=== PATIENT | male | born 1945 | race Caucasian/White ===

== ENCOUNTER → 2017-11-18 | Outpatient (CLI) | payer MEDICARE ==
[2017-11-18 14:07] LABS: Basophils % (A) 1 %; Eosinophils # (A) 0.6 k/uL (0-0.7); Eosinophils % (A) 10 %; HCT 42.6 % (39.0-53.0); HGB 14.1 gm/dL (13.0-17.5); Lymphocytes # (A) 1.7 k/uL (1.0-4.8); Lymphocytes % (A) 27 %; MCHC 33.2 g/dL (31.0-37.0); MCV 93.5 fL (80.0-100.0); Mean Platelet Volume 7.7; Monocytes # (A) 0.4 k/uL (0-1.0); Monocytes % (A) 6 %; Neutrophils # (A) 3.4 k/uL (1.3-7.7); Neutrophils % (A) 54 %; Platelet Count 206 k/uL (150-450); RBC 4.56 m/uL (4.30-5.90); RDW 13.6 % (11.5-15.5); WBC 6.3 k/uL (3.8-10.6)
[2017-11-18 14:17] LABS: Calcium 9.6 mg/dL (8.4-10.2); Potassium 4.9 mmol/L (3.5-5.1); Total Bilirubin 0.6 mg/dL (0.2-1.3); Total Protein 6.7 g/dL (6.3-8.2)
[2017-11-18 14:33] LABS: T4, Free (Free Thyroxine) 0.89 ng/dL (0.78-2.19)
== END | disposition home or self-care (01) ==
LOC: LABWHC1 13:11
PROVIDERS: ATTEND Physician Assistant Medical
DX: L24.9 Irritant contact dermatitis, unspecified cause (principal)
CPT/HCPCS: 36415; 80053; 84439; 84443; 85025

== ENCOUNTER → 2020-09-04 | Outpatient (CLI) | payer MEDICARE ==
[2020-09-04 15:03] LABS: HCT 44.4 % (39.6-50.0); HGB 14.6 g/dL (13.0-17.0); MCH 32.2 pg (27.0-32.0); MCHC 32.9 g/dL (32.0-37.0); MCV 97.8 fL (80.0-97.0); Mean Platelet Volume 10.9 fL (9.5-12.2); Platelet Count 201 X 10*3/uL (140-440); RBC 4.54 X 10*6/uL (4.40-5.60); RDW 13.7 % (11.5-14.5); WBC 6.34 X 10*3/uL (4.50-10.00)
[2020-09-04 15:48] LABS: African American GFR (CKD) 67.7 (60.0-200.0); Anion Gap 4.6 mmol/L (4.00-12.00); Carbon Dioxide 29.4 mmol/L (21.6-31.8); Non-African American GFR(CKD) 58.4 (60.0-200.0); Potassium 4.8 mmol/L (3.5-5.5)
== END | disposition home or self-care (01) ==
LOC: LABWHC1 09:27
PROVIDERS: ATTEND Internal Medicine Interventional Cardiology
DX: Z01.818 Encounter for other preprocedural examination (principal); R94.39 Abnormal result of other cardiovascular function study
CPT/HCPCS: 36415; 80051; 82565; 84520; 85027

== ENCOUNTER 2020-09-06 07:49 | Day surgery (SDC) | payer MEDICARE ==
[2020-09-04 13:19] VITALS: BMI 20.9
[~2020-09-06 07:49] MED LIST: ALPRAZolam 0.25 MG TAB PO PRN; ALPRAZolam 0.5 MG TAB PO PRN; ASPIRIN 325 MG TAB PO STA; HEPARIN SODIUM,PORCINE 10,000 UNIT in SODIUM CHLORIDE 0.9% 1,000 ML IRRIGATION PRN; HEPARIN SODIUM,PORCINE 2,500 UNIT in SODIUM CHLORIDE 0.9% 250 ML IRRIGATION PRN; NITROGLYCERIN SL TABS 0.4 MG TAB SUBLINGUAL PRN; SODIUM CHLORIDE 0.9% 1,000 ML in EMPTY BAG 1 BAG IV ONE
[2020-09-06 08:23] VITALS: RESP 18; TEMP 96.8
[2020-09-06 08:29] LABS: Basophils # (A) 0.1 k/uL (0-0.2); Basophils % (A) 1 %; Eosinophils # (A) 0.2 k/uL (0-0.7); Eosinophils % (A) 3 %; HCT 48.5 % (39.0-53.0); HGB 15.9 gm/dL (13.0-17.5); Lymphocytes # (A) 1.3 k/uL (1.0-4.8); Lymphocytes % (A) 18 %; MCH 32.4 pg (25.0-35.0); MCHC 32.8 g/dL (31.0-37.0); MCV 98.8 fL (80.0-100.0); Mean Platelet Volume 7.7; Monocytes # (A) 0.5 k/uL (0-1.0); Monocytes % (A) 7 %; Neutrophils # (A) 5.1 k/uL (1.3-7.7); Neutrophils % (A) 69 %; Platelet Count 203 k/uL (150-450); RBC 4.91 m/uL (4.30-5.90); RDW 13.3 % (11.5-15.5); WBC 7.3 k/uL (3.8-10.6)
[2020-09-06 08:46] LABS: Calcium 9.5 mg/dL (8.4-10.2); Potassium 4.1 mmol/L (3.5-5.1)
[2020-09-06] MEDS ORDERED: LIDOCAINE 1% INJ 10MG/ML (20 ML MDV) ONE (08:49)
[2020-09-06] MEDS ORDERED: VERAPAMIL 2.5 MG/ML 2 ML AMP ONE (08:49)
[2020-09-06] MEDS ORDERED: HEPARIN SODIUM 1,000 UN/ML (10ML VL) ONE (08:50)
[2020-09-06] MEDS ORDERED: fentaNYL (PF) 50 MCG/ML 2 ML AMP ONE (08:50)
[2020-09-06] MEDS ORDERED: fentaNYL (PF) 50 MCG/ML 2 ML AMP IV ONE (09:30)
[2020-09-06] MEDS ORDERED: LIDOCAINE 1% INJ 10MG/ML (20 ML MDV) SQ ONE ×2 (09:34→09:35)
[2020-09-06] MEDS: VERAPAMIL SYRINGE (5 MG/10 ML) IV ONE ×3 (09:38→09:52)
[2020-09-06] MEDS ORDERED: HEPARIN SODIUM 1,000 UN/ML (10ML VL) IV ONE (09:44)
[2020-09-06] MEDS ORDERED: IOPAMIDOL-370 125ML BTL INJ ONE (09:54)
[2020-09-06] MEDS ORDERED: RX INFO: IV CONTRAST WAS GIVEN 1 EACH MISC MISCELLANE PRN (10:13)
[2020-09-06] MEDS ORDERED: SODIUM CHLORIDE 0.9% 1,000 ML IV SCH (10:15)
--- NOTE | 2020-09-06 13:27 | CC ---
CARDIAC CATHETERIZATION REPORT Mr. Cummings is a 75-year-old male who was recently diagnosed with atrial fibrillation, was found to have an abnormal myocardial perfusion imaging with evidence of cardiomyopathy on his nuclear scan. In view of that, recommendation was made regarding cardiac catheterization. The procedure as well as the risks and the complications were discussed with the patient who is in full understanding and agreement. PROCEDURE: Patient was brought to entry level lab technician in a fasting semi-sedated state after receiving fentanyl and Benadryl and achieving moderate conscious sedated state. Using Xylocaine anesthesia and Seldinger technique, a 6-Azerbaijani sheath was introduced in the right radial artery. Selective right and left coronary angiography performed using 5-Azerbaijani 3.5 bend right and left [place] catheter. Multiple views of the coronary artery including hemiaxial views were obtained. Following that, the 5-Azerbaijani tight pigtail catheter was introduced in the left ventricle and pressures were calculated. Following that, catheter and sheath were removed. Hemostasis was obtained with deployment of a TR band. There was no immediate complication. The patient was returned to his room in stable condition. Of note, the patient received 4000 units of intravenous heparin as well as intra-arterial verapamil. He had no complication. FINDINGS: LEFT MAIN: This is a short size vessel, bifurcating into left circumflex and left anterior descending artery. Left main coronary artery has no evidence of high-grade stenosis. LEFT ANTERIOR DESCENDING ARTERY: This is a large-sized vessel reaching to the apex with a wraparound apex segment giving rise to a moderately sized diagonal branch. The left anterior descending artery as well as branches have no evidence of obstructive coronary artery disease. LEFT CIRCUMFLEX: This is a nondominant vessel giving rise to 2 obtuse marginal branches. The first one is large in caliber. The left circumflex as well as branches have no evidence of obstructive coronary artery disease. RIGHT CORONARY ARTERY: This is a large dominant vessel bifurcating distally PDA and posterolateral segment and branches. The right coronary artery as well as branches have no evidence of obstructive coronary artery disease. LEFT VENTRICULOGRAM: Left ventriculogram was not performed. HEMODYNAMICS: There was no gradient across the aortic valve. The left ventricular end-diastolic pressure was 6 to 8 mmHg. CONCLUSION: 1. Normal coronary arteries. 2. Normal left ventricular end-diastolic pressure. RECOMMENDATION: In view of finding anatomy, recommend to continue medical therapy with aggressive coronary risk modifications that have been initiated. Those findings and recommendations were discussed with the patient and his family and they are in full understanding and agreement. Duration of sedation is 18 minutes. MMODL / IJN: [id number] /
[2020-09-06 13:36] VITALS: BP 106/72; PULSE 72
[2020-09-06] MEDS ORDERED: NON FORMULARY DRUG (Multivit-Min/Fa/Lycopen/Lutein [Centrum Silver Men Tablet] 1 EACH Tabl PO SCH (18:30)
[2020-09-06] MEDS ORDERED: NON FORMULARY DRUG (Simvastatin 20 MG Tab) PO SCH (21:00)
[2020-09-06] MEDS ORDERED: lisinopriL 5 MG TAB PO SCH (21:00)
== END 2020-09-06 13:56 | disposition home or self-care (01) ==
LOC: CATHCVL 07:49
PROVIDERS: ATTEND Internal Medicine Interventional Cardiology
DX: I42.9 Cardiomyopathy, unspecified (principal); R94.39 Abnormal result of other cardiovascular function study; I48.11 Longstanding persistent atrial fibrillation; E78.2 Mixed hyperlipidemia; Z79.01 Long term (current) use of anticoagulants; Z79.899 Other long term (current) drug therapy; Z98.890 Other specified postprocedural states
CPT/HCPCS: 93458; 80048; 85025; J2001; J3010; J1644; Q9967

== ENCOUNTER → 2020-10-02 | Outpatient (CLI) | payer MEDICARE ==
[2020-10-02 09:17] LABS: HCT 47.4 % (39.0-53.0); HGB 15.6 gm/dL (13.0-17.5); MCH 32.6 pg (25.0-35.0); MCHC 32.9 g/dL (31.0-37.0); Platelet Count 190 k/uL (150-450); RBC 4.79 m/uL (4.30-5.90); RDW 13.2 % (11.5-15.5); WBC 6.3 k/uL (3.8-10.6)
[2020-10-02 09:32] LABS: Potassium 4.4 mmol/L (3.5-5.1)
== END | disposition home or self-care (01) ==
LOC: LABPAT 08:38
PROVIDERS: ATTEND Internal Medicine Interventional Cardiology
DX: Z01.818 Encounter for other preprocedural examination (principal); I48.21 Permanent atrial fibrillation
CPT/HCPCS: 36415; 80051; 82565; 84520; 85027

== ENCOUNTER 2020-10-09 05:57 | Day surgery (SDC) | payer MEDICARE ==
[2020-10-04 13:30] VITALS: BMI 21.7
[2020-10-09] MEDS ORDERED: LACTATED RINGERS 1,000 ML IV SCH (06:15)
[2020-10-09] MEDS ORDERED: SODIUM CHLORIDE 0.9% 1,000 ML IV SCH ×2 (06:15→08:00)
[2020-10-09] MEDS ORDERED: PROPOFOL 10 MG/ML 20 ML VIAL IV ONE (07:12)
[2020-10-09 07:52] VITALS: TEMP 97.2
[2020-10-09 07:58] VITALS: RESP 16
--- NOTE | 2020-10-09 08:38 | CE ---
CARDIAC ELECTROPHYSIOLOGY REPORT CARDIOVERSION PROCEDURE NOTE: INDICATION: Atrial fibrillation. PROCEDURE: After explaining the procedure to the patient, its risks and the complications, his blood pressure, heart rate, O2 saturation were monitored. After obtaining sedated state per anesthesia department and performing transesophageal echocardiogram, a synchronized biphasic cardioversion using 200 joules was performed with baptism of normal sinus rhythm. There was no immediate complication. NICOLLE / ALTHEAN: [id number] /
[2020-10-09] MEDS ORDERED: AMIODARONE 200 MG TAB PO SCH (09:00)
--- NOTE | 2020-10-09 10:01 | ECHOT ---
TRANSESOPHAGEAL ECHOCARDIOGRAM INDICATION: Atrial fibrillation. PROCEDURE: After explaining the procedure to the patient, its risks and the complication, his blood pressure, heart rate, O2 saturation were monitored. The throat was sprayed with Cetacaine. He received sedation per anesthesia department. The probe was introduced in the esophagus without difficulty. Images were obtained. The probe was removed. There was no immediate complication. FINDINGS: Left atrial size is dilated. Left atrial appendage is normal. Left ventricular size is normal. The overall left ventricular systolic function is mildly impaired. Estimated ejection fraction 45% to 50%. The aortic valve revealed mild fibrocalcific change with aortic cusp with preserved opening. Mitral valve appears to be normal. No pericardial effusion was noted. Descending thoracic aorta appears to be normal. Contrast bubble study revealed no evidence of shunting across the interatrial septum. Doppler pulse wave and color Doppler obtained and revealed moderate to severe eccentric mitral regurgitation with mild tricuspid regurgitation and trace pulmonic regurgitation. There was no shunting by color Doppler study. CONCLUSION: 1. Dilated left atrium with normal appearance of the left atrial appendage. 2. Normal left ventricular size with mild global hypokinesis. 3. Moderate to severe eccentric mitral regurgitation. 4. Mild tricuspid regurgitation with trace pulmonic regurgitation. 5. No shunting across the interatrial septum. MMODL / IJN: [id number] /
[2020-10-09 10:31] VITALS: PULSE 76
[2020-10-09 10:34] VITALS: BP 137/80
[2020-10-09] MEDS ORDERED: RIVAROXABAN 20 MG TAB PO SCH (21:00)
[2020-10-09] MEDS ORDERED: ATORVASTATIN 10 MG TAB PO SCH (21:00)
[2020-10-09] MEDS ORDERED: lisinopriL 5 MG TAB PO SCH (21:00)
== END 2020-10-09 10:10 | disposition home or self-care (01) ==
LOC: CATHCVL 05:57
PROVIDERS: ATTEND Internal Medicine Interventional Cardiology
DX: I48.11 Longstanding persistent atrial fibrillation (principal); I42.8 Other cardiomyopathies; I08.1 Rheumatic disorders of both mitral and tricuspid valves; E78.2 Mixed hyperlipidemia; Z79.01 Long term (current) use of anticoagulants; Z79.899 Other long term (current) drug therapy
CPT/HCPCS: 93312; 93320; 93325; 92960; J2704; 93005

== ENCOUNTER → 2020-11-27 | Outpatient (CLI) | payer MEDICARE ==
[2020-11-27 21:15] LABS: African American GFR (CKD) 56.2 (60.0-200.0); Albumin 4.3 g/dL (3.80-4.90); Albumin/Globulin Ratio 1.48 (1.60-3.17); Anion Gap 8.6 mmol/L (4.00-12.00); BUN/Creat Ratio 16.43 Ratio (12.00-20.00); Calcium 9.2 mg/dL (8.7-10.3); Carbon Dioxide 25.4 mmol/L (21.6-31.8); Globulin 2.9 g/dL (1.6-3.3); Non-African American GFR(CKD) 48.5 (60.0-200.0); Potassium 4.8 mmol/L (3.5-5.5); Total Bilirubin 0.5 mg/dL (0.3-1.2); Total Protein 7.2 g/dL (6.2-8.2)
== END | disposition home or self-care (01) ==
LOC: LABWHC1 09:10
PROVIDERS: ATTEND Nurse Practitioner Adult Health
DX: I48.11 Longstanding persistent atrial fibrillation (principal); I42.8 Other cardiomyopathies
CPT/HCPCS: 36415; 80053; 84443

== ENCOUNTER → 2021-06-05 | Outpatient (CLI) | payer MEDICARE ==
[2021-06-05 11:17] LABS: Basophils # (A) 0.06 X 10*3/uL (0.00-0.10); Basophils % (A) 0.9 %; Eosinophils # (A) 0.12 X 10*3/uL (0.04-0.35); Eosinophils % (A) 1.8 %; HCT 42.1 % (39.6-50.0); HGB 13.3 g/dL (13.0-17.0); Lymphocytes # (A) 1.03 X 10*3/uL (0.90-5.00); Lymphocytes % (A) 15.4 %; MCH 31.5 pg (27.0-32.0); MCHC 31.6 g/dL (32.0-37.0); MCV 99.8 fL (80.0-97.0); Mean Platelet Volume 10.5 fL (9.5-12.2); Monocytes # (A) 0.64 X 10*3/uL (0.20-1.00); Monocytes % (A) 9.6 %; Neutrophils # (A) 4.82 X 10*3/uL (1.80-7.70); Platelet Count 208 X 10*3/uL (140-440); RBC 4.22 X 10*6/uL (4.40-5.60); RDW 13.8 % (11.5-14.5); WBC 6.69 X 10*3/uL (4.50-10.00)
[2021-06-06 01:49] LABS: African American GFR (CKD) 56.7 (60.0-200.0); Albumin 4.3 g/dL (3.8-4.9); Albumin/Globulin Ratio 1.61 (1.60-3.17); Anion Gap 15.6 mmol/L (4.00-12.00); BUN/Creat Ratio 11.58 Ratio (12.00-20.00); Blood Urea Nitrogen 16.1 mg/dL (9.0-27.0); Calcium 9.6 mg/dL (8.7-10.3); Globulin 2.7 g/dL (1.6-3.3); Non-African American GFR(CKD) 48.9 (60.0-200.0); Potassium 4.5 mmol/L (3.5-5.5); Total Bilirubin 0.4 mg/dL (0.30-1.20); Total Protein 6.9 g/dL (6.2-8.2)
== END | disposition home or self-care (01) ==
LOC: LABWHC1 08:38
PROVIDERS: ATTEND Nurse Practitioner Adult Health
DX: I42.8 Other cardiomyopathies (principal); I48.11 Longstanding persistent atrial fibrillation; G31.84 Mild cognitive impairment of uncertain or unknown etiology
CPT/HCPCS: 36415; 80053; 84443; 85025

== ENCOUNTER 2021-07-22 13:20 | Emergency (ER) | payer MEDICARE ==
[2021-07-22 14:20] VITALS: TEMP 98.8
[2021-07-22 15:20] LABS: Basophils % (A) 0 %; Eosinophils # (A) 0.1 k/uL (0-0.7); Eosinophils % (A) 0 %; HCT 48.4 % (39.0-53.0); HGB 15.3 gm/dL (13.0-17.5); Lymphocytes # (A) 0.1 k/uL (1.0-4.8); Lymphocytes % (A) 1 %; MCH 32.2 pg (25.0-35.0); MCHC 31.6 g/dL (31.0-37.0); MCV 101.9 fL (80.0-100.0); Macrocytosis Slight; Mean Platelet Volume 8.3; Monocytes # (A) 0.4 k/uL (0-1.0); Monocytes % (A) 2 %; Neutrophils # (A) 14.1 k/uL (1.3-7.7); Neutrophils % (A) 96 %; Platelet Count 207 k/uL (150-450); RBC 4.75 m/uL (4.30-5.90); RDW 13.4 % (11.5-15.5); WBC 14.7 k/uL (3.8-10.6)
[2021-07-22 15:31] LABS: Partial Thromboplastin Time 29.6 sec (22.0-30.0); Prothrombin Time 10.7 sec (9.0-12.0)
[2021-07-22 15:37] LABS: Calcium 9.2 mg/dL (8.4-10.2); Potassium 5.1 mmol/L (3.5-5.1); Total Bilirubin 0.4 mg/dL (0.2-1.3)
--- NOTE | 2021-07-22 15:43 | XR ---
EXAMINATION TYPE: XR chest 2V DATE OF EXAM: 07/22/2021 COMPARISON: NONE HISTORY: Blurry vision, weakness TECHNIQUE: Frontal and lateral views of the chest are obtained. FINDINGS: Cardiomediastinal silhouette appears within normal limits. Lungs appear hyperinflated. Coarse interst itial lung markings which likely relate to chronic fibrotic changes. No focal air space opacity, pleu ral effusion, or pneumothorax. Visualized osseous structures appear intact. Moderate degenerative changes of the thoracic spine. IMPRESSION: 1. No dense focal consolidation, pleural effusion, or pneumothorax. 2. Hyperinflated lungs with coarse interstitial lung markings likely due to chronic fibrosis.
--- NOTE | 2021-07-22 16:07 | ED ---
General Adult HPI - General Chief complaint: Weakness Stated complaint: blurred vision Time Seen by Provider: 07/22/21 14:20 Source: patient, RN notes reviewed, old records reviewed Mode of arrival: wheelchair Limitations: no limitations - History of Present Illness Initial comments: This is a 75-year-old male who presents emergency department stating that last night before he went to bed he wasn't feeling well and he thought he might pass out so he laid on the bed and noted that he was short of breath. Patient states events he fell asleep and when he woke up this morning continued to be short of breath and be a little lightheaded. Patient states she did get the COVID vaccine the [employer] but has not got the booster. Patient denies any fever chills or cough. Patient denies any chest pain or palpitations. Patient denies any abdominal pain patient denies nausea vomiting diarrhea. Patient states since she's been sitting in the waiting was feeling better he doesn't feel lightheaded and he doesn't feel short of breath as he did. Patient states only complaint currently is generalized weakness. - Related Data Home Medications Medication Instructions Recorded Confirmed Multivit-Min/FA/Lycopen/Lutein 1 each PO PC-SUPPER 09/04/20 10/09/20 [Centrum Silver Men Tablet] Simvastatin [Zocor] 20 mg PO HS 09/04/20 10/09/20 lisinopriL [Zestril] 5 mg PO HS 09/04/20 10/09/20 Amiodarone [Cordarone] 200 mg PO DAILY 10/04/20 10/09/20 Rivaroxaban [Xarelto] 20 mg PO HS 10/04/20 10/09/20 Previous Rx's Medication Instructions Recorded Azithromycin [Zithromax Tri-Catrachito] 500 mg PO DAILY #3 tab 07/22/21 Allergies Allergy/AdvReac Type Severity Reaction Status Date / Time No Known Allergies Allergy Verified 07/22/21 14:21 Review of Systems ROS Statement: Those systems with pertinent positive or pertinent negative responses have been documented in the HPI. ROS Other: All systems not noted in ROS Statement are negative. Past Medical History Past Medical History: Atrial Fibrillation, Hyperlipidemia, Hypertension History of Any Multi-Drug Resistant Organisms: None Reported Past Surgical History: Orthopedic Surgery Additional Past Surgical History / Comment(s): colonoscopy, sx for fx pelvis as child Past Anesthesia/Blood Transfusion Reactions: No Reported Reaction Past Psychological History: No Psychological Hx Reported Smoking Status: Never smoker Past Alcohol Use History: None Reported Past Drug Use History: None Reported General Exam - General Exam Comments Initial Comments: GENERAL: Patient is well-developed and well-nourished. Patient is nontoxic and well- hydrated and is in mild distress. ENT: Neck is soft and supple. No significant lymphadenopathy is noted. Oropharynx is clear. Moist mucous membranes. Neck has full range of motion without eliciting any pain. EYES: The sclera were anicteric and conjunctiva were pink and moist. Extraocular movements were intact and pupils were equal round and reactive to light. Ey elids were unremarkable. PULMONARY: Unlabored respirations. Good breath sounds bilaterally. No audible rales rhonchi or wheezing was noted. CARDIOVASCULAR: There is a regular rate and rhythm without any murmurs gallops or rubs. ABDOMEN: Soft and nontender with normal bowel sounds. SKIN: Skin is clear with no lesions or rashes and otherwise unremarkable. NEUROLOGIC: Patient is alert and oriented x3. Cranial nerves II through XII are grossly intact. Motor and sensory are also intact. Normal speech, volume and content. Symmetrical smile. MUSCULOSKELETAL: Normal extremities with adequate strength and full range of motion. No lower extremity swelling or edema. No calf tenderness. LYMPHATICS: No significant lymphadenopathy is noted PSYCHIATRIC: Normal psychiatric evaluation. Limitations: no limitations Course Vital Signs 07/22/21 07/22/21 14:18 16:18 Temperature 98.8 F Pulse Rate 95 89 Respiratory 16 18 Rate Blood Pressure 96/62 125/64 O2 Sat by Pulse 98 99 Oximetry Medical Decision Making - Medical Decision Making EKG shows sinus rhythm at 80 bpm FL interval is 212 QRS is 132 QT interval 386 QTC is 467. Patient's EKG shows a right bundle branch block. Chest x-ray shows possible atypical pneumonia I went back in and suggested the patient stay because of his near syncopal episode he and his did not want to stay and he wanted to be discharged home. Patient did receive a gram of Rocephin emergency department. - Lab Data Result diagrams: 07/22/21 14:40 07/22/21 14:40 Lab Results 07/22/21 07/22/21 07/22/21 Range/Units 14:40 14:40 14:40 WBC 14.7 H (3.8-10.6) k/uL RBC 4.75 (4.30-5.90) m/uL Hgb 15.3 (13.0-17.5) gm/dL Hct 48.4 (39.0-53.0) % MCV 101.9 H (80.0-100.0) fL MCH 32.2 (25.0-35.0) pg MCHC 31.6 (31.0-37.0) g/dL RDW 13.4 (11.5-15.5) % Plt Count 207 (150-450) k/uL MPV 8.3 Neutrophils % 96 % Lymphocytes % 1 % Monocytes % 2 % Eosinophils % 0 % Basophils % 0 % Neutrophils # 14.1 H (1.3-7.7) k/uL Lymphocytes # 0.1 L (1.0-4.8) k/uL Monocytes # 0.4 (0-1.0) k/uL Eosinophils # 0.1 (0-0.7) k/uL Basophils # 0.0 (0-0.2) k/uL Macrocytosis Slight PT 10.7 (9.0-12.0) sec INR 1.0 (<1.2) APTT 29.6 (22.0-30.0) sec Sodium (137-145) mmol/L Potassium (3.5-5.1) mmol/L Chloride (98-107) mmol/L Carbon Dioxide (22-30) mmol/L Anion Gap mmol/L BUN (9-20) mg/dL Creatinine (0.66-1.25) mg/dL Est GFR (CKD-EPI)AfAm (>60 ml/min/1.73 sqM) Est GFR (CKD-EPI)NonAf (>60 ml/min/1.73 sqM) Glucose (74-99) mg/dL Calcium (8.4-10.2) mg/dL Total Bilirubin (0.2-1.3) mg/dL AST (17-59) U/L ALT (4-49) U/L Alkaline Phosphatase (38-126) U/L Troponin I (0.000-0.034) ng/mL Total Protein (6.3-8.2) g/dL Albumin (3.5-5.0) g/dL Urine Color Yellow Urine Appearance Cloudy (Clear) Urine pH 5.0 (5.0-8.0) Ur Specific Cook Sta 1.023 (1.001-1.035) Urine Protein 1+ H (Negative) Urine Glucose (UA) Negative (Negative) Urine Ketones Negative (Negative) Urine Blood Negative (Negative) Urine Nitrite Negative (Negative) Urine Bilirubin Negative (Negative) Urine Urobilinogen <2.0 (<2.0) mg/dL Ur Leukocyte Esterase Negative (Negative) Urine RBC 8 H (0-5) /hpf Urine WBC 9 H (0-5) /hpf Ur Squamous Epith Cells 2 (0-4) /hpf Urine Bacteria Many H (None) /hpf Hyaline Casts 150 H (0-2) /lpf Urine Mucus Many H (None) /hpf Coronavirus (PCR) (Not Detectd) 07/22/21 07/22/21 07/22/21 Range/Units 14:40 14:40 16:13 WBC (3.8-10.6) k/uL RBC (4.30-5.90) m/uL Hgb (13.0-17.5) gm/dL Hct (39.0-53.0) % MCV (80.0-100.0) fL MCH (25.0-35.0) pg MCHC (31.0-37.0) g/dL RDW (11.5-15.5) % Plt Count (150-450) k/uL MPV Neutrophils % % Lymphocytes % % Monocytes % % Eosinophils % % Basophils % % Neutrophils # (1.3-7.7) k/uL Lymphocytes # (1.0-4.8) k/uL Monocytes # (0-1.0) k/uL Eosinophils # (0-0.7) k/uL Basophils # (0-0.2) k/uL Macrocytosis PT (9.0-12.0) sec INR (<1.2) APTT (22.0-30.0) sec Sodium 139 (137-145) mmol/L Potassium 5.1 (3.5-5.1) mmol/L Chloride 106 (98-107) mmol/L Carbon Dioxide 21 L (22-30) mmol/L Anion Gap 12 mmol/L BUN 33 H (9-20) mg/dL Creatinine 1.98 H (0.66-1.25) mg/dL Est GFR (CKD-EPI)AfAm 37 (>60 ml/min/1.73 sqM) Est GFR (CKD-EPI)NonAf 32 (>60 ml/min/1.73 sqM) Glucose 144 H (74-99) mg/dL Calcium 9.2 (8.4-10.2) mg/dL Total Bilirubin 0.4 (0.2-1.3) mg/dL AST 34 (17-59) U/L ALT 24 (4-49) U/L Alkaline Phosphatase 50 (38-126) U/L Troponin I <0.012 (0.000-0.034) ng/mL Total Protein 7.0 (6.3-8.2) g/dL Albumin 4.0 (3.5-5.0) g/dL Urine Color Urine Appearance (Clear) Urine pH (5.0-8.0) Ur Specific Cook Sta (1.001-1.035) Urine Protein (Negative) Urine Glucose (UA) (Negative) Urine Ketones (Negative) Urine Blood (Negative) Urine Nitrite (Negative) Urine Bilirubin (Negative) Urine Urobilinogen (<2.0) mg/dL Ur Leukocyte Esterase (Negative) Urine RBC (0-5) /hpf Urine WBC (0-5) /hpf Ur Squamous Epith Cells (0-4) /hpf Urine Bacteria (None) /hpf Hyaline Casts (0-2) /lpf Urine Mucus (None) /hpf Coronavirus (PCR) Not Detected (Not Detectd) Disposition Clinical Impression: Atypical pneumonia, Near syncope Disposition: HOME SELF-CARE Condition: Good Instructions (If sedation given, give patient instructions): Pneumonia (ED) Prescriptions: Azithromycin [Zithromax Tri-Catrachito] 500 mg PO DAILY #3 tab Is patient prescribed a controlled substance at d/c from ED?: No Referrals: None,Stated [REFERRING] - 1-2 days Time of Disposition: 18:18
[2021-07-22 16:18] VITALS: BP 125/64; PULSE 89; RESP 18
[2021-07-22 18:10] LABS: Appearance,Urine Cloudy (Clear); Bacteria,Urine Many /hpf; Bilirubin,Urine Negative (Negative); Blood,Urine Negative (Negative); Color,Urine Yellow; Glucose,Urine (UA) Negative (Negative); Hyaline Casts,Urine 150 /lpf (0-2); Ketones,Urine Negative (Negative); Leukocyte Esterase,Urine Negative (Negative); Mucus,Urine Many /hpf; Nitrite,Urine Negative (Negative); Protein,Urine 1+ (Negative); RBC,Urine 8 /hpf (0-5); Specific Gravity,Urine 1.023 (1.001-1.035); Squamous Epithelial Cell,Urine 2 /hpf (0-4); Urobilinogen,Urine <2.0 mg/dL (<2.0); WBC,Urine 9 /hpf (0-5)
[2021-07-22] MEDS ORDERED: cefTRIAXone 1,000 MG VIAL (IM USE) IM STA (18:19)
== END 2021-07-22 18:48 | disposition home or self-care (01) ==
LOC: EC 13:20
DX: R55 Syncope and collapse (principal); J18.8 Other pneumonia, unspecified organism; I48.91 Unspecified atrial fibrillation; E78.5 Hyperlipidemia, unspecified; I10 Essential (primary) hypertension; Z20.822 Contact with and (suspected) exposure to COVID-19
CPT/HCPCS: 99285; 96372; 36415; 93005; 80053; 84484; 85025; 85610; 85730; 81001; 87635; 71046; J0696

== ENCOUNTER → 2021-08-10 | Outpatient (CLI) | payer MEDICARE ==
--- NOTE | 2021-08-11 07:42 | US ---
EXAMINATION TYPE: US kidneys/renal and bladder DATE OF EXAM: 08/10/2021 COMPARISON: NONE CLINICAL HISTORY: N28.9 impaired renal function. EXAM MEASUREMENTS: Right Kidney: 10.1 x 6.1 x 4.0 cm Left Kidney: 9.6 x 3.9 x 5.0 cm Post Void Residual Volume: 13.5 mL Right Kidney: upper to mid cortical cyst is seen = 1.0 x 0.6 x 0.8cm Left Kidney: limitedly seen due to overlying bowel gas anteriorly and rib interference in coronal and prone views Bladder: moderately distended; prostate is noted inferior and posterior to bladder with volume measur e approximately = 29.7ml (wnl as is less than 30.0 ml). Bilateral Jets seen: no, only right ureteral jet was seen within 3 minute observation Normal Post Void Residual: yes IMPRESSION: 1. No hydronephrosis or nephrolithiasis. 2. Bladder limited by incomplete distention 3. Correlate for prostate hypertrophy.
== END | disposition home or self-care (01) ==
LOC: RADUSWWP 15:51
PROVIDERS: ATTEND Family Medicine
DX: N32.89 Other specified disorders of bladder (principal)
CPT/HCPCS: 76770

== ENCOUNTER 2024-05-16 16:13 | Inpatient (IN) | payer MEDICARE ==
--- NOTE | 2024-05-16 16:28 | ED ---
General Adult HPI - General Chief complaint: Altered Mental Status Stated complaint: Fall, Failure to Thrive Time Seen by Provider: 05/16/24 16:25 Source: patient, family, EMS Mode of arrival: EMS Limitations: altered mental status - History of Present Illness Initial comments: Patient presents to the ED by ambulance for evaluation with son at bedside. Per son, the patient's neighbor came to bring him dinner a short while ago and found him "half on and half off his bed". He states that the patient was minimally responsive, so an ambulance was called. He states that the patient has baseline dementia, and he is normally A&O x 1. He states that the patient was last seen by his neighbor yesterday at approximately the same time. He states that he is unsure how long the patient was down for today. Patient was placed in a c- collar by EMS. Patient denies having any pain or symptoms/complaints at this time, but history from the patient is very limited due to dementia. - Related Data Home Medications Medication Instructions Recorded Confirmed No Known Home Medications 05/16/24 05/16/24 Allergies Allergy/AdvReac Type Severity Reaction Status Date / Time No Known Allergies Allergy Verified 05/16/24 16:49 Review of Systems ROS Statement: Those systems with pertinent positive or pertinent negative responses have been documented in the HPI. ROS Other: All systems not noted in ROS Statement are negative. Limitations: ROS unobtainable due to patients medical condition Past Medical History Past Medical History: Atrial Fibrillation, Dementia, Hyperlipidemia, Hypertension History of Any Multi-Drug Resistant Organisms: None Reported Past Surgical History: Orthopedic Surgery Additional Past Surgical History / Comment(s): colonoscopy, sx for fx pelvis as child Past Anesthesia/Blood Transfusion Reactions: No Reported Reaction Past Psychological History: No Psychological Hx Reported Smoking Status: Never smoker Past Alcohol Use History: None Reported Past Drug Use History: None Reported General Exam Limitations: altered mental status General appearance: alert, in no apparent distress Head exam: Present: atraumatic, normocephalic Eye exam: Present: normal appearance, PERRL, EOMI ENT exam: Present: mucous membranes dry, TM's normal bilaterally Neck exam: Present: other (C-collar is in place; no posterior cervical step-off deformity is noted on exam; trachea is in midline). Absent: tenderness Respiratory exam: Present: normal lung sounds bilaterally. Absent: respiratory distress, wheezes, rales, rhonchi, stridor, chest wall tenderness Cardiovascular Exam: Present: regular rate, irregular rhythm, normal heart sounds, other (Normal radial pulses bilaterally) GI/Abdominal exam: Present: soft. Absent: distended, tenderness, guarding Extremities exam: Present: full ROM, other (Pelvis is stable and nontender; patient has full range of motion at bilateral hips without any difficulty). Absent: tenderness, pedal edema, calf tenderness Back exam: Present: normal inspection. Absent: tenderness Neurological exam: Present: alert, CN II-XII intact, other (Patient is oriented to person, but not to place or time). Absent: motor sensory deficit Skin exam: Present: warm, dry, intact, normal color Course Vital Signs 05/16/24 05/16/24 16:16 19:08 Temperature 98.8 F Pulse Rate 108 H 98 Respiratory 20 18 Rate Blood Pressure 152/101 140/100 O2 Sat by Pulse 97 98 Oximetry - Reevaluation(s) Reevaluation #1: 05/16/24 19:12 Case, H&P, test results and ED management thus far were discussed with [facility] Mouna Saeed. She accepts hospital admission. She has no further recommendations at this time. 05/16/24 19:16 Patient remains alert and breathing comfortably. Patient remains in rate controlled atrial fibrillation on the cardiac monitor technician. Family is aware of the patient's test results, and they all agree with hospital admission at this time. EKG Findings - EKG Comments: EKG Findings:: ED physician interpretation (interpreted by me): Atrial fibrillation, ventricular rate of 100 bpm, right bundle branch block (no change from 07/22/2021 EKG), QRS duration of 128 ms, normal QT interval, rightward axis, no definite ST or T wave abnormality Medical Decision Making - Medical Decision Making Was pt. sent in by a medical professional or institution (, PA, [facility], urgent care, hospital, or long-term...) When possible be specific @ -No Did you speak to anyone other than the patient for history (EMS, parent, family, police, friend...)? What history was obtained from this source @ -History was also obtained from the patient's son. Did you review nursing and triage notes (agree or disagree)? Why? @ -I reviewed and agree with nursing and triage notes Were old charts reviewed (outside hosp., previous admission, EMS record, old EKG, old radiological studies, urgent care reports/EKG's, long-term records)? Report findings @ -No old charts were reviewed Differential Diagnosis (chest pain, altered mental status, abdominal pain women, abdominal pain men, vaginal bleeding, weakness, fever, dyspnea, syncope, headache, dizziness, GI bleed, back pain, seizure, CVA, palpatations, mental health, musculoskeletal)? @ -Differential Altered Mental Status: Hypoglycemia, DKA, hypercapnia, ETOH, overdose, trauma, fall, ICH, rhabdomyolysis, myxedema coma, encephalopathy, infection, psychosis, hepatic encephalopathy, CVA, contusion, this is not meant to be an all-inclusive list EKG interpreted by me (3pts min.). @ -As above X-rays interpreted by me (1pt min.). @ -Chest x-ray was reviewed myself and shows findings consistent with pulmonary vascular congestion/CHF. I agree with the radiologist's interpretation as above. CT interpreted by me (1pt min.). @ -Noncontrast CT head/cervical spine was reviewed myself and shows no acute abnormality. I agree with the radiologist's interpretation as above. U/S interpreted by me (1pt. min.). @ -None done What testing was considered but not performed or refused? (CT, X-rays, U/S, labs)? Why? @ -None What meds were considered but not given or refused? Why? @ -None Did you discuss the management of the patient with other professionals (professionals i.e. , PA, [facility], lab, RT, psych nurse, drug abuse social worker, shake packer, teacher, bsa/aml compliance officer, case filler)? Give summary @ -As above. Was smoking cessation discussed for >3mins.? @ -No Was critical care preformed (if so, how long)? @ -No Were there social determinants of health that impacted care today? How? (Homelessness, low income, unemployed, alcoholism, drug addiction, transportation, low edu. Level, literacy, decrease access to med. care, shelter, rehab)? @ -No Was there de-escalation of care discussed even if they declined (Discuss DNR or withdrawal of care, Hospice)? DNR status @ -No What co-morbidities impacted this encounter? (DM, HTN, Smoking, COPD, CAD, Cancer, CVA, ARF, Chemo, Hep., AIDS, mental health diagnosis, sleep apnea, morbid obesity)? @ -None Was patient admitted / discharged? Hospital course, mention meds given and route, prescriptions, significant lab abnormalities, going to OR and other pertinent info. @ -History from the patient is very limited due to dementia. Son reports that the patient potentially fell today and lives by himself. ED evaluation demonstrates findings consistent with CHF. Patient has been treated with IV Lasix in the ED. Will admit the patient to the hospital for further e valuation/management, as well as placement evaluation. [facility] [place] Saeed has accepted hospital admission. Family agrees with this plan. Undiagnosed new problem with uncertain prognosis? @ -No Drug Therapy requiring intensive monitoring for toxicity (Heparin, Nitro, Insulin, Cardizem)? @ -No Were any procedures done? @ -No Diagnosis/symptom? @ -Altered mental status Acute, or Chronic, or Acute on Chronic? @ -Default Uncomplicated (without systemic symptoms) or Complicated (systemic symptoms)? @ -Default Side effects of treatment? @ -No Exacerbation, Progression, or Severe Exacerbation? @ -No Poses a threat to life or bodily function? How? (Chest pain, USA, MA, pneumonia, PE, COPD, DKA, ARF, appy, cholecystitis, CVA, Diverticulitis, Homicidal, Suicidal, threat to staff... and all critical care pts) @ -No Diagnosis/symptom? @ -Suspected fall Acute, or Chronic, or Acute on Chronic? @ -Acute Uncomplicated (without systemic symptoms) or Complicated (systemic symptoms)? @ -Default Side effects of treatment? @ -None Exacerbation, Progression, or Severe Exacerbation] @ -No Poses a threat to life or bodily function? @ -No Diagnosis/symptom? @ -CHF Acute, or Chronic, or Acute on Chronic? @ -Default Uncomplicated (without systemic symptoms) or Complicated (systemic symptoms)? @ -Default Side effects of treatment? @ -None Exacerbation, Progression, or Severe Exacerbation] @ -No Poses a threat to life or bodily function? @ -No Diagnosis/symptom? @ -Atrial fibrillation Acute, or Chronic, or Acute on Chronic? @ -Chronic Uncomplicated (without systemic symptoms) or Complicated (systemic symptoms)? @ -Default Side effects of treatment? @ -None Exacerbation, Progression, or Severe Exacerbation] @ -No Poses a threat to life or bodily function? @ -No - Lab Data Result diagrams: 05/16/24 17:05 05/16/24 17:05 Lab Results 05/16/24 05/16/24 05/16/24 Range/Units 17:05 17:05 17:05 WBC 9.2 (3.8-10.6) k/uL RBC 4.05 L (4.30-5.90) m/uL Hgb 13.4 (13.0-17.5) gm/dL Hct 42.3 (39.0-53.0) % MCV 104.4 H (80.0-100.0) fL MCH 33.0 (25.0-35.0) pg MCHC 31.6 (31.0-37.0) g/dL RDW 13.2 (11.5-15.5) % Plt Count 244 (150-450) k/uL MPV 7.9 Neutrophils % 85 % Lymphocytes % 7 % Monocytes % 6 % Eosinophils % 0 % Basophils % 1 % Neutrophils # 7.8 H (1.3-7.7) k/uL Lymphocytes # 0.6 L (1.0-4.8) k/uL Monocytes # 0.6 (0-1.0) k/uL Eosinophils # 0.0 (0-0.7) k/uL Basophils # 0.0 (0-0.2) k/uL Hypochromasia Slight Macrocytosis Slight PT 10.5 (10.0-12.5) sec INR 1.0 (<1.2) APTT 23.5 (22.0-30.0) sec Sodium 140 (137-145) mmol/L Potassium 3.9 (3.5-5.1) mmol/L Chloride 109 H (98-107) mmol/L Carbon Dioxide 24 (22-30) mmol/L Anion Gap 7 mmol/L BUN 22 H (9-20) mg/dL Creatinine 0.81 (0.66-1.25) mg/dL Est GFR (CKD-EPI)AfAm >90 (>60 ml/min/1.73 sqM) Est GFR (CKD-EPI)NonAf 85 (>60 ml/min/1.73 sqM) Glucose 106 H (74-99) mg/dL Calcium 9.0 (8.4-10.2) mg/dL Magnesium 1.9 (1.6-2.3) mg/dL Total Bilirubin 1.0 (0.2-1.3) mg/dL AST 23 (17-59) U/L ALT 15 (4-49) U/L Alkaline Phosphatase 55 (38-126) U/L Ammonia (<30) umol/L Creatine Kinase 71 (55-170) U/L Troponin I (0.000-0.034) ng/mL NT-Pro-B Natriuret Pep 5190 pg/mL Total Protein 7.1 (6.3-8.2) g/dL Albumin 3.9 (3.5-5.0) g/dL TSH 2.960 (0.465-4.680) mIU/L Serum Alcohol <10 mg/dL 05/16/24 05/16/24 Range/Units 17:05 17:05 WBC (3.8-10.6) k/uL RBC (4.30-5.90) m/uL Hgb (13.0-17.5) gm/dL Hct (39.0-53.0) % MCV (80.0-100.0) fL MCH (25.0-35.0) pg MCHC (31.0-37.0) g/dL RDW (11.5-15.5) % Plt Count (150-450) k/uL MPV Neutrophils % % Lymphocytes % % Monocytes % % Eosinophils % % Basophils % % Neutrophils # (1.3-7.7) k/uL Lymphocytes # (1.0-4.8) k/uL Monocytes # (0-1.0) k/uL Eosinophils # (0-0.7) k/uL Basophils # (0-0.2) k/uL Hypochromasia Macrocytosis PT (10.0-12.5) sec INR (<1.2) APTT (22.0-30.0) sec Sodium (137-145) mmol/L Potassium (3.5-5.1) mmol/L Chloride (98-107) mmol/L Carbon Dioxide (22-30) mmol/L Anion Gap mmol/L BUN (9-20) mg/dL Creatinine (0.66-1.25) mg/dL Est GFR (CKD-EPI)AfAm (>60 ml/min/1.73 sqM) Est GFR (CKD-EPI)NonAf (>60 ml/min/1.73 sqM) Glucose (74-99) mg/dL Calcium (8.4-10.2) mg/dL Magnesium (1.6-2.3) mg/dL Total Bilirubin (0.2-1.3) mg/dL AST (17-59) U/L ALT (4-49) U/L Alkaline Phosphatase (38-126) U/L Ammonia <9 (<30) umol/L Creatine Kinase (55-170) U/L Troponin I <0.012 (0.000-0.034) ng/mL NT-Pro-B Natriuret Pep pg/mL Total Protein (6.3-8.2) g/dL Albumin (3.5-5.0) g/dL TSH (0.465-4.680) mIU/L Serum Alcohol mg/dL - Radiology Data Noncontrast CT head/cervical spine: 1. No acute intracranial process. 2. Nonspecific white matter changes. 3. No evidence of cervical spine fracture. 4. Mild multilevel degenerative disc disease. 5. 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 6. Moderate emphysema changes. Chest x-ray: Scattered interstitial opacities which appear superimposed on airspace opacities slightly more pronounced from 07/22/2021 correlate for atypical pneumonia versus pulmonary vascular congestion. Disposition Clinical Impression: Altered mental status, Atrial fibrillation, CHF (congestive heart failure) Narrative: Suspected fall Disposition: ADMITTED IP TO THIS HOSP Condition: Stable Is patient prescribed a controlled substance at d/c from ED?: No Referrals: None,Stated [Primary Care Provider] - 1-2 days Time of Disposition: 19:13
[2024-05-16] MEDS: SODIUM CHLORIDE 0.9% 500 ML 500 ML IV ONE (17:01)
[2024-05-16 17:19] LABS: Basophils % (A) 1 %; Eosinophils % (A) 0 %; HCT 42.3 % (39.0-53.0); HGB 13.4 gm/dL (13.0-17.5); Hypochromasia Slight; Lymphocytes # (A) 0.6 k/uL (1.0-4.8); Lymphocytes % (A) 7 %; MCHC 31.6 g/dL (31.0-37.0); MCV 104.4 fL (80.0-100.0); Macrocytosis Slight; Mean Platelet Volume 7.9; Monocytes # (A) 0.6 k/uL (0-1.0); Monocytes % (A) 6 %; Neutrophils # (A) 7.8 k/uL (1.3-7.7); Neutrophils % (A) 85 %; Platelet Count 244 k/uL (150-450); RBC 4.05 m/uL (4.30-5.90); RDW 13.2 % (11.5-15.5); WBC 9.2 k/uL (3.8-10.6)
[2024-05-16 17:27] LABS: Partial Thromboplastin Time 23.5 sec (22.0-30.0); Prothrombin Time 10.5 sec (10.0-12.5)
[2024-05-16 17:30] LABS: ALT 15 U/L (4-49); AST 23 U/L (17-59); African American GFR (CKD) >90 (>60 ml/min/1.73 sqM); Albumin 3.9 g/dL (3.5-5.0); Alcohol <10 mg/dL; Alkaline Phosphatase 55 U/L (38-126); Anion Gap 7 mmol/L; Blood Urea Nitrogen 22 mg/dL (9-20); Carbon Dioxide 24 mmol/L (22-30); Chloride 109 mmol/L (98-107); Creatine Kinase 71 U/L (55-170); Glucose 106 mg/dL (74-99); Magnesium 1.9 mg/dL (1.6-2.3); Non-African American GFR(CKD) 85 (>60 ml/min/1.73 sqM); Potassium 3.9 mmol/L (3.5-5.1); Sodium 140 mmol/L (137-145); Total Protein 7.1 g/dL (6.3-8.2)
[2024-05-16 17:38] LABS: NT-Pro-B-Type Natriuretic Pept 5190 pg/mL
--- NOTE | 2024-05-16 18:02 | CT ---
EXAMINATION TYPE: CT brain cspine wo con CT DLP: 1420.2 mGycm, Automated exposure control for dose reduction was used. DATE OF EXAM: 05/16/2024 5:32 PM COMPARISON: 08/03/2021. CLINICAL INDICATION: Male, 78 years old with history of altered mental status, possible fall; Increas ed weakness. Per EMS pt had a fall two days ago. TECHNIQUE: Brain: Multiple axial CT images of the brain were obtained without IV contrast. Cspine: Axial CT images from the skull base to the inferior aspect of T2 we obtained without intraven ous contrast. Coronal and sagittal reformatted images were also reviewed. . FINDINGS: Brain: Extra-axial spaces: No abnormal extra-axial fluid collections. Ventricular system: Dilatation in proportion to cerebral atrophy. Cerebral parenchyma: Cerebral atrophy. No acute intraparenchymal hemorrhage or mass effect. The piper -white junction is well differentiated. Scattered hypoattenuating areas are seen within the white mat ter. Cerebellum: Unremarkable. Mass effect: No evidence of midline shift. Intracranial vasculature: Atherosclerotic calcifications of the intracranial vessels. Soft tissues: Normal. Calvarium/osseous structures: No depressed skull fracture. Paranasal sinuses and mastoid air cells: Mild scattered mucosal thickening and or secretions. Visualized orbits: Bilateral aphakia Cervical spine: Fracture: None. Osseous structures: Multilevel degenerative disc disease changes with endplate spurring and disc oste ophyte complex's. Vertebral alignment: Within normal limits. Spinal canal/Neural Foramina: No evidence of significant spinal canal narrowing. No evidence for sign ificant neural foraminal stenosis. Neck soft tissues: Prevertebral soft tissues are within normal limits. Other: The airway is patent. Centrilobular and paraseptal emphysema changes with scattered airspace o pacities. IMPRESSION: 1. No acute intracranial process. 2. Nonspecific white matter changes. 3. No evidence of cervical spine fracture. 4. Mild multilevel degenerative disc disease. 5. 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 6. Moderate emphysema changes. [facility], , 05/16/2024 6:00 PM
--- NOTE | 2024-05-16 18:51 | XR ---
EXAMINATION TYPE: XR chest 1V portable DATE OF EXAM: 05/16/2024 6:32 PM CLINICAL INDICATION: Male, 78 years old with history of altered mental status; [facility] COMPARISON: Chest radiographs from 07/22/2023 TECHNIQUE: XR chest 1V portable Frontal view of the chest. FINDINGS: Lungs/Pleura: Prominent interstitial lung markings are seen scattered throughout the lungs with super imposed airspace opacities. No evidence of focal consolidation, pneumothorax or pleural effusion. Pulmonary vascularity: Unremarkable. Heart/mediastinum: Cardiomediastinal silhouette is unremarkable. Musculoskeletal: No acute osseous pathology. IMPRESSION: Scattered interstitial opacities which appear superimposed on airspace opacities slightly more pronou nced from 07/22/2021 correlate for atypical pneumonia versus pulmonary vascular congestion. [facility], , 05/16/2024 6:49 PM
[2024-05-16] MEDS ORDERED: NALOXONE 0.4 MG/ML 1 ML VIAL IV PRN (19:13)
[2024-05-16 19:26] LABS: Appearance,Urine Clear (Clear); Bilirubin,Urine Negative (Negative); Blood,Urine Small (Negative); Color,Urine Yellow; Glucose,Urine (UA) Negative (Negative); Hyaline Casts,Urine 3 /lpf (0-2); Ketones,Urine Negative (Negative); Leukocyte Esterase,Urine Negative (Negative); Mucus,Urine Few /hpf; Nitrite,Urine Negative (Negative); PH, Urine 5.5 (5.0-8.0); Protein,Urine Trace (Negative); RBC,Urine 17 /hpf (0-5); Specific Gravity,Urine 1.022 (1.001-1.035); Squamous Epithelial Cell,Urine <1 /hpf (0-4); Urobilinogen,Urine <2.0 mg/dL (<2.0); WBC,Urine 3 /hpf (0-5)
[2024-05-16 19:32] LABS: Amphetamine Screen,Urine Not Detected (NotDetected); Barbiturate Screen,Urine Not Detected (NotDetected); Benzodiazepines Screen,Urine Not Detected (NotDetected); Cocaine Screen,Urine Not Detected (NotDetected); Methadone Screen, Urine Not Detected (NotDetected); Opiate Screen,Urine Not Detected (NotDetected); Oxycodone Screen, Urine Not Detected (NotDetected); Phencyclidine Screen,Urine Not Detected (NotDetected); Tricyclic Antidepressant,Urine Not Detected (NotDetected); Urn Cannabinoid Scrn Not Detected (NotDetected)
[2024-05-16] MEDS: FUROSEMIDE 10 MG/ML 4 ML VIAL IV STA (19:50)
[2024-05-16] MEDS: LORazepam 2 MG/ML INJ IV STA ×2 (20:52→23:03)
[2024-05-17] MEDS: METOPROLOL TARTRATE 25 MG TAB PO SCH ×2 (02:04→15:21)
[2024-05-17 06:21] LABS: ALT 16 U/L (4-49); African American GFR (CKD) >90 (>60 ml/min/1.73 sqM); Albumin 4.3 g/dL (3.5-5.0); Albumin/Globulin Ratio 1.3; Anion Gap 9 mmol/L; Blood Urea Nitrogen 27 mg/dL (9-20); Calcium 9.4 mg/dL (8.4-10.2); Carbon Dioxide 25 mmol/L (22-30); Chloride 107 mmol/L (98-107); Globulin 3.4 g/dL; Glucose 151 mg/dL (74-99); Non-African American GFR(CKD) 84 (>60 ml/min/1.73 sqM); Sodium 141 mmol/L (137-145); Total Bilirubin 1.2 mg/dL (0.2-1.3); Total Protein 7.7 g/dL (6.3-8.2)
[2024-05-17 06:28] LABS: AST 30 U/L (17-59); Alkaline Phosphatase 54 U/L (38-126); Potassium 4.6 mmol/L (3.5-5.1)
[2024-05-17 07:53] LABS: Basophils % (A) 0 %; Eosinophils % (A) 0 %; HCT 45.8 % (39.0-53.0); HGB 14.1 gm/dL (13.0-17.5); Hypochromasia Slight; Lymphocytes # (A) 0.7 k/uL (1.0-4.8); Lymphocytes % (A) 7 %; MCHC 30.7 g/dL (31.0-37.0); MCV 104.1 fL (80.0-100.0); Macrocytosis Slight; Mean Platelet Volume 7.8; Monocytes # (A) 0.7 k/uL (0-1.0); Monocytes % (A) 6 %; Neutrophils # (A) 9.3 k/uL (1.3-7.7); Neutrophils % (A) 85 %; Platelet Count 284 k/uL (150-450); RDW 13.1 % (11.5-15.5); WBC 10.9 k/uL (3.8-10.6)
[2024-05-17] MEDS: PANTOPRAZOLE 40 MG/10 ML VIAL IVP SCH (11:45)
[2024-05-17] MEDS: DEXTROSE 5%-0.9% NACL 1,000 ML IV SCH (11:45)
--- NOTE | 2024-05-17 12:18 | P.CRDCN ---
History of Present Illness Consult date: 05/17/24 History of present illness: - . HPI: This is a unfortunate 78-year-old gentleman brought in by ambulance and his son was present with him in the room when I examined him and also he was there in the ER apparently he lives alone and his neighbor brought him some dinner and found that he was off the bed hardly responsive. It appears that patient lives alone his nearly 2-1/2 years ago he has underlying dementia. He uses [employer] Whe[employer] but has not been eating well or drinking well. He looks very emaciated. He used to see Dr. Fan in the office and his last visit was in 2021. He has history of atrial fibrillation for which she underwent electr ical cardioversion. From September 2020 revealed ejection fraction in the 50 to 55% range without pulmonary hypertension moderate mitral regurgitation was noted. Gnosis of nonischemic cardiomyopathy and during the last visit in November 2021 he was in a jump. However since then he has not seen a physician. He looks quite emaciated malnourished. Patient's son is here who is the power of county attorney and indicates to me that he does not wish to give him any longstanding medications and patient himself is not very communicative we tried to give him some medications he did not swallow and he is going to have a speech and swallow evaluation. The communicate with the patient my EKG revealed atrial fibril lation with a moderately rapid ventricular rate right bundle branch block pattern and repolarization abnormality with LVH. RELEVANT PAST MEDICAL HISTORY: Paroxysmal atrial fibrillation previous card ioversion last visit with Dr. Fna he was in a sinus rhythm in November 2021. Also has a nonischemic cardiomyopathy. Related to atrial fibrillation. MEDICATIONS: Not taking any medicines ALLERGIES: None. REVIEW OF SYSTEMS: Obtained. PHYSICIAL EXAM: Also stable JVD is not evident S1-S2 with irregularity and rhythm lungs reveal diminished air entry patient is emaciated abdomen is soft lower extremities reveal diminished pulses moves all 4 extremities does not communicate meaningfully.. IMPRESSION: 1. Persistent atrial fibrillation. 2. Malnutrition and dehydration. 3. Possible CVA. 4.. 5.. RECOMMENDATIONS: [Initiate him on Eliquis 5 mg twice daily after evaluation by his admitting doctor, D5.9 saline 75 cc/h a portable echo at bedside metoprolol tartrate 25 mg 3 times daily. Prognosis remains poor Past Medical History Past Medical History: Atrial Fibrillation, Dementia, Hyperlipidemia, Hypertension History of Any Multi-Drug Resistant Organisms: None Reported Past Surgical History: Orthopedic Surgery Additional Past Surgical History / Comment(s): colonoscopy, sx for fx pelvis as child Past Anesthesia/Blood Transfusion Reactions: No Reported Reaction Past Psychological History: No Psychological Hx Reported Smoking Status: Unknown if ever smoked Past Alcohol Use History: None Reported Past Drug Use History: None Reported Medications and Allergies Home Medications Medication Instructions Recorded Confirmed Type No Known Home Medications 05/16/24 05/16/24 History Allergies Allergy/AdvReac Type Severity Reaction Status Date / Time No Known Allergies Allergy Verified 05/16/24 16:49 Physical Exam Vitals: Vital Signs Temp Pulse Pulse Resp BP BP Pulse Ox 05/17/24 07:25 88 18 158/114 100 05/17/24 01:53 20 163/82 05/17/24 00:45 97.2 F L 56 L 16 149/115 93 L 05/17/24 00:10 106 H 20 156/90 97 05/16/24 20:00 109 H 18 131/104 97 05/16/24 19:08 98 18 140/100 98 05/16/24 16:16 98.8 F 108 H 20 152/101 97 Intake and Output 05/16/24 05/17/24 05/17/24 22:59 06:59 14:59 Intake Total 0 Balance 0 Intake: Oral 0 Other: Voiding Method Diaper Incontinent # Voids 2 Weight 56.699 kg 56.699 kg Results 05/17/24 07:21 05/17/24 05:25 Cardiac Enzymes 05/16/24 05/16/24 05/17/24 Range/Units 17:05 17:05 05:25 AST 23 30 (17-59) U/L Troponin I <0.012 (0.000-0.034) ng/mL Coagulation 05/16/24 Range/Units 17:05 PT 10.5 (10.0-12.5) sec APTT 23.5 (22.0-30.0) sec CBC 05/16/24 05/17/24 Range/Units 17:05 07:21 WBC 9.2 10.9 H (3.8-10.6) k/uL RBC 4.05 L 4.40 (4.30-5.90) m/uL Hgb 13.4 14.1 (13.0-17.5) gm/dL Hct 42.3 45.8 (39.0-53.0) % Plt Count 244 284 (150-450) k/uL Comprehensive Metabolic Panel 05/16/24 05/17/24 Range/Units 17:05 05:25 Sodium 140 141 (137-145) mmol/L Potassium 3.9 4.6 (3.5-5.1) mmol/L Chloride 109 H 107 (98-107) mmol/L Carbon Dioxide 24 25 (22-30) mmol/L BUN 22 H 27 H (9-20) mg/dL Creatinine 0.81 0.83 (0.66-1.25) mg/dL Glucose 106 H 151 H (74-99) mg/dL Calcium 9.0 9.4 (8.4-10.2) mg/dL AST 23 30 (17-59) U/L ALT 15 16 (4-49) U/L Alkaline Phosphatase 55 54 (38-126) U/L Total Protein 7.1 7.7 (6.3-8.2) g/dL Albumin 3.9 4.3 (3.5-5.0) g/dL Current Medications Generic Name Dose Route Start Last Admin Trade Name Freq PRN Reason Stop Dose Admin Apixaban 2.5 mg 05/17/24 21:00 Apixaban 2.5 Mg Tablet PO BID [facility] Protocol Enoxaparin Sodium 40 mg 05/18/24 09:00 Enoxaparin 40 Mg/0.4 Ml Syringe SQ DAILY [facility] Dextrose/Sodium Chloride 1,000 mls @ 75 mls/hr 05/17/24 10:45 05/17/24 11:45 Dextrose 5%-Ns Iv Soln IV 75 mls/hr .[id number] NASRIN Administration Lorazepam 1 mg 05/16/24 23:50 Lorazepam 2 Mg/Ml Inj IV Q4HR PRN Agitation or Acute Psychosis Metoprolol Tartrate 25 mg 05/17/24 16:00 Metoprolol Tartrate 25 Mg Tab PO TID NASRIN Naloxone HCl 0.2 mg 05/16/24 19:13 Naloxone 0.4 Mg/Ml 1 Ml Vial IV Q2M PRN Opioid Reversal Pantoprazole Sodium 40 mg 05/17/24 10:00 05/17/24 11:45 Pantoprazole 40 Mg/10 Ml Vial IVP 40 mg Q24HR NASRIN Administration Intake and Output 05/16/24 05/17/24 05/17/24 22:59 06:59 14:59 Intake Total 0 Balance 0 Intake: Oral 0 Other: Voiding Method Diaper Incontinent # Voids 2 Weight 56.699 kg 56.699 kg 05/17/24 07:21 05/17/24 05:25
--- NOTE | 2024-05-17 14:06 | P.HPIM ---
History of Present Illness History of present illness; 78-year-old male with a past medical history of dementia, atrial fibrillation, hyperlipidemia, and hypertension presents with altered mental status. During time of interview patient was not forthcoming with information and was sleeping, majority of information and history obtained from the patient's son. Per the patient's son, the patient's neighbor came over yesterday to bring him dinner and found him "half on and off his bed."The neighbor states the patient was found to be minimally responsive so EMS was called. The son states the patient has baseline dementia and is normally A and O x 1. Son and neighbor report they are unsure how long the patient was down for yesterday. Patient denies any pain or symptoms at this time but history is limited due to patient's current dementia. Initial lab work from the ER was significant for WBC 9.2, hemoglobin 13.4, MCV 104.4, neutrophil 7.8, sodium 140, potassium 3.9, creatinine 0.81, glucose 106, troponin less than 0.012, BNP 5190, TSH 2.96, and urinalysis significant for 17 urine WBC and 3 hyaline casts. Urine drug tox: Negative for everything. EKG done in the ER showed heart rate of 100 bpm, no ST segment elevation or depression seen, no T-wave inversions seen. Atrial fibrillation with RVR, right axis deviation, right bundle branch block, QTc 400. ER CXR: Scattered interstitial opacities which appear superimposed on airspace opacities slightly more pronounced from 07/22/[address] Head and cervical: No acute intracranial process, nonspecific white matter changes, no evidence of cervical spine fracture, mild multilevel degenerative disc disease, pulmonary vasculature congestion superimposed on COPD/emphysema correlate with serum BMP, and moderate emphysema changes. Patient admitted to internal medicine service REVIEW OF SYSTEMS: During time of interview patient would not respond to questions. The rest of the 14-point review of systems is negative. PHYSICAL EXAMINATION: GENERAL: The patient is alert and oriented x3, not in any acute distress. Well developed, well nourished. HEENT: Pupils are round and equally reacting to light. EOMI. No scleral icterus. No conjunctival pallor. Normocephalic, atraumatic. No pharyngeal erythema. No thyromegaly. CARDIOVASCULAR: S1 and S2 present. No murmurs, rubs, or gallops. PULMONARY: Chest is clear to auscultation b/l, no wheezing or crackles. ABDOMEN: Soft, nontender, nondistended, normoactive bowel sounds. No palpable organomegaly. MUSCULOSKELETAL: No joint swelling or deformity. EXTREMITIES: No cyanosis, clubbing, or pedal edema. NEUROLOGICAL: Gross neurological examination did not reveal any focal deficits. SKIN: No rashes. Assessment & Plan: Acute: #Atrial fibrillation with RVR: Cardiology on consult, appreciate further recommendations Started on Eliquis 2.5 mg p.o. twice daily, and Lopressor 25 mg p.o. 3 times daily #Failure to thrive: BMI 17 Evaluated by OT, do not recommend PEG tube placement, recommended n.p.o. to avoid any potential aspiration Hospice consulted as patient family have requested it Per patient's son, when patient was of sound mind he wanted minimal treatment Patient refuses to take medications at home since his Chronic: #Hyperlipidemia #Hypertension #Dementia F: D5 half NS 75 cc/h E: None N: N.p.o. per OT recommendation DVT ppx: Lovenox 40 SQ daily GI ppx: Protonix 40 mg p.o. daily Dispo: Patient heading towards comfort care, hospice consulted, patient's family would like the patient to receive hospice at home but are unsure if they will have family around to be able to take care of him when they are not medical staff available looking after him. CODE STATUS: No code Ashok Herr MD PGY-1 FM Dictation was produced using [employer]in[employer] dictation software. please excuse any grammatical, word or spelling errors. Past Medical History Past Medical History: Atrial Fibrillation, Dementia, Hyperlipidemia, Hypert ension History of Any Multi-Drug Resistant Organisms: None Reported Past Surgical History: Orthopedic Surgery Additional Past Surgical History / Comment(s): colonoscopy, sx for fx pelvis as child Past Anesthesia/Blood Transfusion Reactions: No Reported Reaction Past Psychological History: No Psychological Hx Reported Smoking Status: Unknown if ever smoked Past Alcohol Use History: None Reported Past Drug Use History: None Reported Medications and Allergies Home Medications Medication Instructions Recorded Confirmed Type No Known Home Medications 05/16/24 05/16/24 History Allergies Allergy/AdvReac Type Severity Reaction Status Date / Time No Known Allergies Allergy Verified 05/16/24 16:49 Physical Exam Vitals: Vital Signs Temp Pulse Pulse Resp BP BP Pulse Ox 10/21/24 01:53 20 163/82 05/17/24 00:45 97.2 F L 56 L 16 149/115 93 L 05/17/24 00:10 106 H 20 156/90 97 05/16/24 20:00 109 H 18 131/104 97 05/16/24 19:08 98 18 140/100 98 05/16/24 16:16 98.8 F 108 H 20 152/101 97 Intake and Output 05/16/24 05/17/24 05/17/24 22:59 06:59 14:59 Intake Total 0 Balance 0 Intake: Oral 0 Other: # Voids 2 Weight 56.699 kg 56.699 kg Results CBC & Chem 7: 05/17/24 07:21 05/17/24 05:25 Labs: Abnormal Lab Results - Last 24 Hours (Table) 05/16/24 05/16/24 05/16/24 Range/Units 17:05 17:05 19:07 RBC 4.05 L (4.30-5.90) m/uL MCV 104.4 H (80.0-100.0) fL Neutrophils # 7.8 H (1.3-7.7) k/uL Lymphocytes # 0.6 L (1.0-4.8) k/uL Chloride 109 H (98-107) mmol/L BUN 22 H (9-20) mg/dL Glucose 106 H (74-99) mg/dL Urine Protein Trace H (Negative) Urine Blood Small H (Negative) Urine RBC 17 H (0-5) /hpf Hyaline Casts 3 H (0-2) /lpf Urine Mucus Few H (None) /hpf 05/17/24 Range/Units 05:25 RBC (4.30-5.90) m/uL MCV (80.0-100.0) fL Neutrophils # (1.3-7.7) k/uL Lymphocytes # (1.0-4.8) k/uL Chloride (98-107) mmol/L BUN 27 H (9-20) mg/dL Glucose 151 H (74-99) mg/dL Urine Protein (Negative) Urine Blood (Negative) Urine RBC (0-5) /hpf Hyaline Casts (0-2) /lpf Urine Mucus (None) /hpf
[2024-05-17 16:22] VITALS: BMI 16.9
[2024-05-17] MEDS ORDERED: APIXABAN 2.5 MG TABLET PO SCH (21:00)
[2024-05-18] MEDS ORDERED: PANTOPRAZOLE 40 MG TABLET PO SCH (07:30)
--- NOTE | 2024-05-18 09:41 | CDI ---
Documentation Clarification Form Date: 05/18/2024 From: Olivia Beaver RN CCDS Phone: [phone] Admit Date: 05/16/2024 07:13:00 PM Patient Name: Dandre Cummings Visit Number: [id number] Discharge Date: ATTENTION: The Clinical Documentation Specialists (CDI) and [facility] Coding Staff appreciate your assistance in clarifying documentation. Please respond to the clarification below the line at the bottom and electronically sign. The CDI & [facility] Coding staff will review the response and follow-up if needed. Please note: Queries are made part of the Legal Health Record. If you have any questions, please contact the author of this message via ITS. Doctor/Provider: Tito Ramey MD: Malnutrition is documented in the Cardiology consult 05/17. Additional clarification regarding the severity of malnutrition is requested. History/Risk Factors: 78-year-old male with a history of AFib, HTN and dementia who presents after fall found to be in Atrial Fibrillation with RVR, failure to thrive Clinical Indicators: 05/16 BMI: 17.0 Height: 56.699kg Weight: 6ft 05/17 H&P, Assessment/Plan: "Failure to thrive: BMI 17" 05/17 Cardiology consult, HPI: "He looks quite emaciated, malnourished." Impression: "2. Malnutrition and dehydration.' 05/17 RD Consult Assessment: "Nutrition diagnosis, Underweight as related to advanced age, dementia" 05/16-05/17 Total Protein: 7.1, 7.7 Treatment: Currently NPO, diet pending METER TESTER POLYPHASE evaluation Please clarify the severity of malnutrition, if known: [ ] Mild Protein-Calorie Malnutrition [ ] Moderate Protein-Calorie Malnutrition [ ] Severe Protein-Calorie Malnutrition [ ] Malnutrition, unknown severity [ ] Other condition, please specify [ ] Unable to Determine Answered in IM PN 05/19 severe protein calorie malnutrition MTDD
[2024-05-18] MEDS: ENOXAPARIN 40 MG/0.4 ML SYRINGE SQ SCH (10:25)
--- NOTE | 2024-05-18 11:28 | P.PN ---
Subjective HISTORY OF PRESENT ILLNESS: HPI: This is a unfortunate 78-year-old gentleman brought in by ambulance and his son was present with him in the room when I examined him and also he was there in the ER apparently he lives alone and his neighbor brought him some dinner and found that he was off the bed hardly responsive. It appears that patient lives alone his nearly 2-1/2 years ago he has underlying dementia. He uses Meals on Wheels but has not been eating well or drinking well. He looks very emaciated. He used to see Dr. Fan in the office and his last visit was in 2021. He has history of atrial fibrillation for which she underwent electrical cardioversion. From September 2020 revealed ejection fraction in the 50 to 55% range without pulmonary hypertension moderate mitral regurgitation was noted. Gnosis of nonischemic cardiomyopathy and during the last visit in November 2021 he was in a jump. However since then he has not seen a physician. He looks quite emaciated malnourished. Patient's son is here who is the power of collections attorney and indicates to me that he does not wish to give him any longstanding medications and patient himself is not very communicative we tried to give him some medications he did not swallow and he is going to have a speech and swallow evaluation. The communicate with the patient my EKG revealed atrial fibrillation with a moderately rapid ventricular rate right bundle branch block pattern and repolarization abnormality with LVH. 05/18/2024 Patient examined this morning at the bedside. advanced developer currently at the bedside. Patient currently denies any chest pain or pressure. Denies shortness of breath. Patient's son met with hospice yesterday afternoon. Awaiting final decision from family regarding hospice. PHYSICAL EXAM: VITAL SIGNS: Reviewed. GENERAL: Patient appears to be in no acute distress. Patient appears frail and emaciated. NECK: Supple. No JVD or thyromegaly LUNGS: Respirations even and unlabored. Lungs essentially clear to auscultation bilaterally. HEART: Irregular rate and rhythm. S1 and S2 heard. EXTREMITIES: Normal range of motion. No clubbing or cyanosis. Peripheral pulses intact. No lower extremity edema ASSESSMENT: Persistent atrial fibrillation Altered mental status Failure to thrive/malnutrition; BMI 17.0 History of hypertension History of hyperlipidemia History of dementia PLAN: 2D echo has been ordered. Await results. Patient currently unable to take any medications by mouth due to possible aspiration. Eliquis and metoprolol are ordered if patient's diet changes and he is able to take medications by mouth. Patient's family has met with hospice. Currently awaiting final decision from family regarding hospice. From a cardiac standpoint, there are no further inpatient recommendations We will follow on as-needed basis. Please call with questions or concerns. Nurse practitioner note has been reviewed by physician. Signing provider agrees with the documented findings, assessment, and plan of care documented by CHANGE AGENT as a scribe. Objective - Vital Signs Vital signs: Vital Signs Temp 97.8 F 05/18/24 07:02 Pulse 81 05/18/24 07:02 Resp 16 05/18/24 07:02 BP 154/87 05/18/24 07:02 Pulse Ox 95 05/18/24 07:02 FiO2 Intake & Output 05/17/24 05/18/24 05/18/24 18:59 06:59 18:59 Output Total 1201 350 200 Balance -1201 -350 -200 Weight 56.699 kg Output: Urine 1200 350 200 Coude 200 Urine/Stool Mix 1 Other: Voiding Method Diaper Indwelling Catheter Indwelling Catheter Incontinent # Bowel Movements 1 - Labs CBC & Chem 7: 05/17/24 07:21 05/17/24 05:25
--- NOTE | 2024-05-18 12:30 | P.DS ---
Providers Date of admission: 05/16/24 19:13 Attending physician: Tito Ramey Consults: 05/17/24 01:35 Consult Physician Stat Consulting Provider: Robi Williamson Consult Reason/Comments: a.fib RVR Do you want consulting provider notified?: Yes Primary care physician: Stated None Hospital Course: Patient is a 78-year-old female came in for atrial fibrillation patient was started on anticoagulation as well as beta-oseas although patient has advanced dementia extremely poor Karnofsky score. Family is requesting for hospice hospice evaluated the patient and family still trying to figure out whether patient is more appropriate for home with hospice or hospice facility. Patient is appropriate for hospice secondary to advanced dementia and extremely poor Karnofsky score PHYSICAL EXAMINATION: GENERAL: Thin built frail male HEENT: Pupils are round and equally reacting to light. EOMI. No scleral icterus. No conjunctival pallor. Normocephalic, atraumatic. No pharyngeal erythema. No thyromegaly. CARDIOVASCULAR: S1 and S2 present. No murmurs, rubs, or gallops. PULMONARY: Chest is clear to auscultation, no wheezing or crackles. ABDOMEN: Soft, nontender, nondistended, normoactive bowel sounds. No palpable organomegaly. MUSCULOSKELETAL: No joint swelling or deformity. EXTREMITIES: No cyanosis, clubbing, or pedal edema. NEUROLOGICAL: Advanced dementia bedbound SKIN: No rashes. Assessment Advanced dementia, poor quality of life: Patient will be probably hospice -Patient was treated for atrial fibrillation with rapid color rate although patient may not be candidate for Eliquis if she if he ends up being hospice patient can take Lopressor though Severe malnutrition PEG tube is not appropriate and will be futile care -Hypertension -Hyperlipidemia Patient Condition at Discharge: Stable Plan - Discharge Summary New Discharge Prescriptions: New Metoprolol Tartrate [Lopressor] 25 mg PO TID #60 tab Discharge Medication List Metoprolol Tartrate [Lopressor] 25 mg PO TID #60 tab 05/18/24 [Rx] Follow up Appointment(s)/Referral(s): None,Stated [Primary Care Provider] - 1-2 days
[2024-05-19] MEDS: LORazepam 2 MG/ML INJ IV PRN (08:46)
--- NOTE | 2024-05-20 04:41 | P.PN ---
Subjective Progress Note Date: 05/19/24 History of present illness; 78-year-old male with a past medical history of dementia, atrial fibrillation, hyperlipidemia, and hypertension presents with altered mental status. During time of interview patient was not forthcoming with information and was sleeping, majority of information and history obtained from the patient's son. Per the patient's son, the patient's neighbor came over yesterday to bring him dinner and found him "half on and off his bed."The neighbor states the patient was found to be minimally responsive so EMS was called. The son states the patient has baseline dementia and is normally A and O x 1. Son and neighbor report they are unsure how long the patient was down for yesterday. Patient denies any pain or symptoms at this time but history is limited due to patient's current dementia. Initial lab work from the ER was significant for WBC 9.2, hemoglobin 13.4, MCV 104.4, neutrophil 7.8, sodium 140, potassium 3.9, creatinine 0.81, glucose 106, troponin less than 0.012, BNP 5190, TSH 2.96, and urinalysis significant for 17 urine WBC and 3 hyaline casts. Urine drug tox: Negative for everything. EKG done in the ER showed heart rate of 100 bpm, no ST segment elevation or depression seen, no T-wave inversions seen. Atrial fibrillation with RVR, right axis deviation, right bundle branch block, QTc 400. ER CXR: Scattered interstitial opacities which appear superimposed on airspace opacities slightly more pronounced from 07/22/[address] Head and cervical: No acute intracranial process, nonspecific white matter changes, no evidence of cervical spine fracture, mild multilevel degenerative disc disease, pulmonary vasculature congestion superimposed on COPD/emphysema correlate with serum BMP, and moderate emphysema changes. Patient admitted to internal medicine service 05/19/2024 Patient is seen in follow-up this morning and family has discussed further and would like to meet with [facility] and plan is for home with hospice. Family has to arrange for necessary equipment and hospice has ordered equipment to be delivered to the home. Patient is asleep and obtunded and will continue with current medication regimen at this time. Continue supportive and comfort care. REVIEW OF SYSTEMS: Unable to assess as patient is asleep and mostly obtunded PHYSICAL EXAMINATION: GENERAL: The patient is asleep, arousable at times, does not appear in any acute distress. Well developed, elderly appearing, ill-appearing, cachectic HEENT: Pupils are round and equally reacting to light. EOMI. No scleral icterus. No conjunctival pallor. Normocephalic, atraumatic. No pharyngeal erythema. No thyromegaly. CARDIOVASCULAR: S1 and S2 muffled PULMONARY: Diminished breath sounds bilaterally otherwise chest is clear to auscultation b/l, no wheezing or crackles. ABDOMEN: Soft, thin, nontender, nondistended, normoactive bowel sounds. No palpable organomegaly. MUSCULOSKELETAL: No joint swelling or deformity. EXTREMITIES: No cyanosis, clubbing, or pedal edema. NEUROLOGICAL: Gross neurological examination did not reveal any focal deficits. Diffusely weak SKIN: No rashes. Assessment & Plan: Acute: #Atrial fibrillation with RVR: Currently rate controlled Cardiology has evaluated the patient and medications are being discontinued as patient is going hospice Started on Eliquis 2.5 mg p.o. twice daily, and Lopressor 25 mg p.o. 3 times daily #Failure to thrive: BMI 17 Evaluated by OT, do not recommend PEG tube placement, recommended n.p.o. to avoid any potential aspiration Hospice evaluated patient and will be going home with hospice. [facility] services Per patient's son, when patient was of sound mind he wanted minimal treatment Patient refuses to take medications at home since his # Severe protein calorie malnutrition with a BMI of 17 Chronic: #Hyperlipidemia #Hypertension #Dementia # No code Plan: Patient is currently n.p.o. and medications other than supportive care and comfort measures have been discontinued Patient's family met with [facility] and will be going home with hospice. Family needs to arrange for moving around furniture and preparing the home and hospice is ordering equipment to be delivered Plan is for discharge home in 24 hours with hospice Overall poor prognosis. The impression and plan of care has been dictated by Ana Rahman Nurse Practitioner as directed. Dr. Navneet MD I have performed a history and examination and MDM of this patient, discussed the same with the dictator, and agree with the dictator's assessment and plan as written ,documented as a scribe. Based on total visit time, I have performed more than 50% of the visit. Objective - Vital Signs Vital signs: Vital Signs Temp 97.4 F L 05/19/24 07:12 Pulse 59 L 05/19/24 07:12 Resp 16 05/19/24 07:12 BP 160/89 05/19/24 07:12 Pulse Ox 91 L 05/19/24 07:12 FiO2 Intake & Output 05/18/24 05/19/24 05/19/24 18:59 06:59 18:59 Intake Total 590 Output Total 600 600 300 Balance -600 -10 -300 Intake: Oral 590 Output: Urine 600 600 300 Coude 200 300 Other: Voiding Method Indwelling Catheter Indwelling Catheter - Labs CBC & Chem 7: 05/17/24 07:21 05/17/24 05:25
--- NOTE | 2024-05-20 04:45 | P.DS ---
Providers Date of admission: 05/16/24 19:13 Expected date of discharge: 05/20/24 Attending physician: Tito Ramey Primary care physician: Stated None Hospital Course: Final diagnosis #Atrial fibrillation with RVR: Currently rate controlled #Failure to thrive: BMI 17 # Severe protein calorie malnutrition with a BMI of 17 #Hyperlipidemia #Hypertension #Dementia # No code Discharge disposition Patient is being discharged in a stable condition with guarded prognosis to home with [facility]. Patient will continue with comfort measures per hospice. Total time taken is greater than 35 minutes. Hospital course This is a 78-year-old male who was recently admitted with multiple comorbidities found to have atrial fibrillation with RVR. Per family patient has been refusing to eat and not taking medications since his passed. Patient does have a history of dementia and was also evaluated by speech and made strict n.p.o. as patient is aspirating and high risk for aspiration on everything. PEG tube is not recommended in this patient. Further discussion with family and decisions made and patient will be going home with hospice [facility] services. Equipment and home is being arranged for discharge home today. Currently no reports of chest pain, shortness of breath, or palpitations. Patient is afebrile. No reports of nausea or vomiting. Patient will be going home with [facility] hospice services today. Overall poor prognosis. Physical exam: Gen: This is a 78-year-old male who is asleep although arousable at times, well- developed, elderly appearing, ill-appearing, thin built HEENT: Head is atraumatic, normocephalic. Pupils equal, round. Sclerae is anicteric. NECK: Supple. No JVD. No lymphadenopathy. No thyromegaly. LUNGS: Diminished breath sounds bilaterally otherwise clear to auscultation. No wheezes or rhonchi. No intercostal retractions. HEART: S1, S2 are muffled ABDOMEN: Soft. Thin, cachectic bowel sounds are present. No masses. No tenderness. EXTREMITIES: No pedal edema. No calf tenderness. NEUROLOGICAL: Patient is asleep but arousable, alert and oriented x1. Diffusely weak Please refer to medication reconciliation sheet for a list of medications. The impression and plan of care has been dictated by Ana Rahman, Nurse Practitioner as directed. Dr. Navneet MD I have performed a history and examination and MDM of this patient, discussed the same with the dictator, and agree with the dictator's assessment and plan as written ,documented as a scribe. Based on total visit time, I have performed more than 50% of the visit. Patient Condition at Discharge: Poor Plan - Discharge Summary New Discharge Prescriptions: New Metoprolol Tartrate [Lopressor] 25 mg PO TID #60 tab Discharge Medication List Metoprolol Tartrate [Lopressor] 25 mg PO TID #60 tab 05/18/24 [Rx] Follow up Appointment(s)/Referral(s): None,Stated [Primary Care Provider] - 1-2 days Activity/Diet/Wound Care/Special Instructions: Patient is going home with hospice [facility] hospice services following Discharge Disposition: HOME WITH HOSPICE
--- NOTE | 2024-05-20 08:55 | CA ---
Transthoracic Echo Report Name: Dandre Cummings Age: 78 Gender: M : 1945 Exam Date: 05/19/2024 09:06 Exam Location: [facility] Ht (in): 72 Wt (lb): 125 Ordering Physician: Manda Palacio MD ([id number]) Attending/Referring Phys: Cat[place] Dixie Mayers RDCS Procedure CPT: Indications: LV function Cardiac Hx: Technical Quality: Good Contrast 1: Total Dose (mL): Contrast 2: Total Dose (mL): MEASUREMENTS (Male / Female) Normal Values 2D ECHO LV Diastolic Diameter PLAX 4.5 cm 4.2 - 5.9 / 3.9 - 5.3 cm LV Systolic Diameter PLAX 3.8 cm IVS Diastolic Thickness 0.6 cm 0.6 - 1.0 / 0.6 - 0.9 cm LVPW Diastolic Thickness 0.8 cm 0.6 - 1.0 / 0.6 - 0.9 cm LV Relative Wall Thickness 0.3 LVOT Diameter 2.1 cm LA Volume 98.5 cm??? 18 - 58 / 22 - 52 cm??? LA Volume Index 58.7 cm???/m??? 16 - 28 cm???/m??? Ascending Aorta Diameter 3.7 cm DOPPLER AV Peak Velocity 99.4 cm/s AV Peak Gradient 4.0 mmHg AV Mean Velocity 71.3 cm/s AV Mean Gradient 2.2 mmHg AV Velocity Time Integral 18.0 cm LVOT Peak Velocity 77.1 cm/s LVOT Peak Gradient 2.4 mmHg LVOT Velocity Time Integral 13.9 cm LVOT Stroke Volume 46.2 cm??? LVOT Stroke Volume Index 26.5 ml/m??? LVOT Cardiac Index 2396.4 cm???/min???m??? AV Area Cont Eq vti 2.6 cm??? AV Area Cont Eq pk 2.6 cm??? TR Peak Velocity 242.1 cm/s TR Peak Gradient 23.5 mmHg Right Atrial Pressure 5.0 mmHg Pulmonary Artery Systolic Pressu 28.5 mmHg Right Ventricular Systolic Press 28.5 mmHg PV Peak Velocity 52.1 cm/s PV Peak Gradient 1.1 mmHg FINDINGS Left Ventricle Left ventricular ejection fraction is estimated at 40 %. Mild left ventricular dilatation. Left ventricular wall thickness normal. Global hypokinesis with regional variability. Right Ventricle Mild right ventricular dilatation with mild to moderately reduced function. Right ventricular systolic pressure within normal limits. Right Atrium Severe right atrial dilatation. Left Atrium Severely increased left atrial volume. Mildly increased left atrial area. Mitral Valve Mitral valve thickened. No evidence for mitral valve prolapse. No mitral stenosis. [id number] mitral regurgitation. Aortic Valve Trileaflet aortic valve. Aortic valve sclerosis. No aortic stenosis. No aortic regurgitation. Tricuspid Valve Structurally normal tricuspid valve. No tricuspid stenosis. Mild tricuspid regurgitation. Pulmonic Valve Structurally normal pulmonic valve. No pulmonic stenosis. Trace pulmonic regurgitation. Pericardium No pericardial effusion. Aorta Normal size aortic root and proximal ascending aorta. CONCLUSIONS LV size is normal with the global decrease in contractility. Patient is in atrial fibrillation. Ejection fraction is about 40%. Mild right ventricular dilatation and significant dilatation of both atria are noted. There is moderate mitral regurgitation and mild to moderate tricuspid regurgitation without significant pulmonary hypertension although right-sided pressures are not well quantified. No pericardial effusion Previewed by: Dr. Manda Palacio MD (Electronically Signed) Final Date: 20 May 2024 08:54
[2024-05-20 13:20] VITALS: BP 158/95; PULSE 96; RESP 17; TEMP 96.7
[2024-05-20] MEDS: LORazepam 2 MG/ML INJ IM STA (14:40)
== END 2024-05-20 14:45 | disposition still patient (30) | DRG 308 ==
LOC: EC 16:13 → 5NMEDONC 19:13
PROVIDERS: ADMIT Hospitalist; ATTEND Hospitalist
DX: I48.19 Other persistent atrial fibrillation (principal); E43 Unspecified severe protein-calorie malnutrition; R64 Cachexia; Z68.1 Body mass index [BMI] 19.9 or less, adult; Z66 Do not resuscitate; R62.7 Adult failure to thrive; Z51.5 Encounter for palliative care; I11.0 Hypertensive heart disease with heart failure; I50.9 Heart failure, unspecified; E86.0 Dehydration; I42.8 Other cardiomyopathies; F03.90 Unspecified dementia, unspecified severity, without behavioral disturbance, psychotic disturbance, mood disturbance, and anxiety; I45.10 Unspecified right bundle-branch block; E78.5 Hyperlipidemia, unspecified; Z60.2 Problems related to living alone; Z91.148 Patient's other noncompliance with medication regimen for other reason
CPT/HCPCS: 36415; 70450; 71045; 72125; 80053; 80306; 80320; 81001; 82140; 82550; 83735; 83880; 84443; 84484; 85025; 85610; 85730; 93005; 93306; 94760; 96361; 96374; 96375; 96376; 99285